=== PATIENT | female | born 2000 | race African-American/Black ===

== ENCOUNTER 2022-11-25 16:27 | Emergency (ER) | payer OTHER ==
[~2022-11-25] VITALS: Ht 162.6 cm; Wt 47.7 kg
[2022-11-25 16:41] VITALS: BP 110/68
[2022-11-25 17:15] LABS: CHLORIDE 106 mEq/L (98-107)
[2022-11-25 17:17] LABS: HEMATOCRIT. 38.5 % (36.0-48.0); HEMOGLOBIN. 13.5 g/dL (12.0-16.0); MEAN CORPUSCULAR HEMOGLOBIN 32.5 pg (28.0-32.0); MEAN CORPUSCULAR VOLUME 92.5 fL (81.0-99.0); PLATELET 305 x1000/uL (130-400); RED BLOOD CELL COUNT 4.16 mill/uL (4.2-5.4); RED CELL DISTRIBUTION WIDTH 13.6 % (11.6-14.6)
[2022-11-25 18:32] LABS: PLATELET ESTIMATE NORMAL
[2022-11-25 22:42] LABS: CLARITY URINE CLOUDY (CLEAR); COLOR URINE YELLOW (YELLOW); KETONES URINE TRACE (NEGATIVE); LEUKOCYTE ESTERASE URINE TRACE (NEGATIVE); NITRITE URINE POSITIVE (NEGATIVE); OCCULT BLOOD URINE 3+ (NEGATIVE); PROTEIN URINE 1+ (NEGATIVE); UROBILINOGEN URINE 0.2 E.U./dL (0.2-1.0)
[2022-11-26 11:11] LABS: UCG SCREEN NEGATIVE
== END 2022-11-25 23:30 | disposition left against medical advice (07) ==
LOC: ER 16:27
DX: R10.9 Unspecified abdominal pain (principal); K59.00 Constipation, unspecified
CPT/HCPCS: 36415; 80053; 81003; 81025; 85025; 99283